=== PATIENT | female | born 1955 | race Hispanic/Latino ===

== ENCOUNTER → 2023-10-14 | Outpatient (CLI) | payer OTHER ==
[~2023-10-14] MED LIST: IOHEXOL-350 75 ML VIAL IV ONE
== END | disposition home or self-care (01) ==
LOC: RAH 10:07
PROVIDERS: ATTEND Family Medicine
DX: K76.0 Fatty (change of) liver, not elsewhere classified (principal); K86.89 Other specified diseases of pancreas; R93.2 Abnormal findings on diagnostic imaging of liver and biliary tract; I70.90 Unspecified atherosclerosis; M47.815 Spondylosis without myelopathy or radiculopathy, thoracolumbar region
CPT/HCPCS: 74160; Q9967; 74170

== ENCOUNTER 2023-11-25 06:54 | Day surgery (SDC) | payer OTHER ==
[~2023-11-25] VITALS: Ht 149.9 cm; Wt 71.2 kg
[2023-11-25] VITALS (15 sets, daily range): BP systolic 90–138; BP diastolic 51–65; PULSE 62–81; RESP 12–16
[~2023-11-25 06:54] MED LIST changes: +0.9%NACL 1000ML 1,000 ML IV ONE; +ALEN70TA80 PO; +CALC-1125 PO; +HYDR12.54 PO; -IOHEXOL-350 75 ML VIAL IV ONE; +LEVO50CA4 PO; +MULT-1367 PO
[2023-11-25] MEDS ORDERED: LIDOCAINE HCL 1% 20 ML VIAL ONE (10:32)
[2023-11-25] MEDS ORDERED: PROPOFOL 10 MG/ML 20ML VIAL IV ONE ×2 (10:32→10:47)
== END 2023-11-25 12:15 | disposition home or self-care (01) ==
LOC: DAH 06:54 → ENDO 06:54
PROVIDERS: ATTEND Internal Medicine Gastroenterology
DX: R93.3 Abnormal findings on diagnostic imaging of other parts of digestive tract (principal); K29.50 Unspecified chronic gastritis without bleeding; R94.5 Abnormal results of liver function studies; R19.4 Change in bowel habit; I10 Essential (primary) hypertension; F41.9 Anxiety disorder, unspecified; F32.A Depression, unspecified; E03.9 Hypothyroidism, unspecified; Z90.11 Acquired absence of right breast and nipple; Z80.0 Family history of malignant neoplasm of digestive organs; Z85.3 Personal history of malignant neoplasm of breast; Z86.010 Personal history of colon polyps; Z79.890 Hormone replacement therapy
CPT/HCPCS: 43259; 43239; J7030 ×2; J2704; A4620; A4215 ×2; A4223; A7002; A4222; A4221; A4663; A4606; J3490

== ENCOUNTER → 2025-05-29 | Outpatient (CLI) | payer OTHER ==
[~2025-05-29] MED LIST changes: -0.9%NACL 1000ML 1,000 ML IV ONE; +IOHEXOL 350 MG/ML 100ML INFUS..BTL IV ONE; -LEVO50CA4 PO; +LEVO50CA5 PO
--- NOTE | 2025-05-29 18:57 | HMCIMG ---
EXAM: CT Abdomen with and without IV contrast CLINICAL HISTORY: abnormal findings on diagnostic imaging of other parts of the digestive tra TECHNIQUE: Axial computed tomography images of the abdomen and pelvis with and without intravenous contrast. CONTRAST: with and without intravenous contrast. COMPARISON: None provided. CT abdomen 10/14/2023 FINDINGS: LUNG BASES: The lung bases appear clear. No pleural effusions are seen. LIVER: Unremarkable. GALLBLADDER AND BILE DUCTS: The gallbladder appears within normal limits. No radioopaque gallstones are seen. No biliary ductal dilatation is evident. PANCREAS: Unremarkable. SPLEEN: Unremarkable. ADRENAL GLANDS: Unremarkable. KIDNEYS, URETERS, AND BLADDER: The kidneys appear within normal limits. There is no hydronephrosis or hydroureter. No urinary calculi are seen. STOMACH AND BOWEL: Unremarkable appearance of the stomach and bowel. No evidence of bowel obstruction. No evidence suggesting enteritis or colitis. The proximal appendix is normal in appearance. The remainder the appendix is not included. There is mild haziness and small mesenteric lymph nodes within the root of the small bowel mesentery unchanged PERITONEUM: No free fluid. No free air. LYMPH NODES: No lymphadenopathy is evident. VASCULATURE: No evidence of abdominal aortic aneurysm. BONES: No aggressive appearing osseous lesion. No acute osseous pathology evident. IMPRESSION: 1. No acute intraabdominal or pelvic pathology. 2. Mild mesenteric haziness and small mesenteric lymph nodes, unchanged. /Holder
== END | disposition home or self-care (01) ==
LOC: RAH 11:18
PROVIDERS: ATTEND Internal Medicine Gastroenterology
DX: R59.0 Localized enlarged lymph nodes (principal); R93.3 Abnormal findings on diagnostic imaging of other parts of digestive tract; R93.2 Abnormal findings on diagnostic imaging of liver and biliary tract
CPT/HCPCS: 74170; Q9967